=== PATIENT | female | born 1950 | race Two or more races ===

== ENCOUNTER 2021-07-02 11:18 | Outpatient (CLI) | payer OTHER | END 2021-07-02 12:03 | disposition home or self-care (01) | LOC: SONOGRAMA 11:18 | PROVIDERS: ATTEND Pathology Anatomic Pathology & Clinical Pathology | DX: E04.2 Nontoxic multinodular goiter (principal) ==

== ENCOUNTER 2024-09-30 13:50 | Outpatient (CLI) | payer OTHER | END 2024-09-30 13:54 | disposition home or self-care (01) | LOC: SONOGRAMA 13:50 | PROVIDERS: ATTEND Pathology Anatomic Pathology & Clinical Pathology | DX: D34 Benign neoplasm of thyroid gland (principal); E04.1 Nontoxic single thyroid nodule ==

== ENCOUNTER 2025-01-24 10:51 | Outpatient (CLI) | payer OTHER | END 2025-01-24 10:56 | disposition home or self-care (01) | LOC: SONOGRAMA 10:51 | PROVIDERS: ATTEND Pathology Anatomic Pathology | DX: D44.0 Neoplasm of uncertain behavior of thyroid gland (principal); C73 Malignant neoplasm of thyroid gland ==